=== PATIENT | female | born 1945 | race Caucasian/White ===

== ENCOUNTER 2016-08-19 11:03 | Inpatient (IN) | payer MEDICARE ==
[2016-08-19] VITALS (14 sets, daily range): BP systolic 100–202; BP diastolic 51–123; PULSE 64–196; RESP 14–24; TEMP 97.7–98; O2SAT 90–97
[~2016-08-19] VITALS: Ht 162.6 cm; Wt 66.1 kg
[2016-08-19] MEDS ORDERED: METO25TA3 PO (11:17)
--- NOTE | 2016-08-19 11:22 | PD ---
HPI Chief Complaint: Cold / Flu Symptoms Time Seen by Provider: 11:22 Travel History International Travel<30 days: No Contact w/Intl Traveler<30days: No Traveled to known affect area: No History of Present Illness HPI 70-year-old female with history of asthma and a "thick heart" presents to emergency department for evaluation of wheezing, chest congestion, and cough worsening over the last 4 days. Cough is productive of a thick yellow sputum. Patient is from [place] and here for by week. She does have seasonal asthma exacerbated by pollen and has not been taking her medication down here. Denies any fever or chills. No chest pain. No nausea, vomiting, diarrhea. Patient states at times she does still short of breath. As no other symptoms to report. PFSH Past Medical History Asthma: Yes (SEASONAL) Cardiovascular Problems: Yes (THICKENED "HEART WALL") Past Surgical History Genitourinary Surgery: Yes (BLADDER LIFT) Hysterectomy: Yes Social History Alcohol Use: No Tobacco Use: No Substance Use: No Allergies-Medications (Allergen,Severity, Reaction): Coded Allergies: Common Ragweed (Verified Allergy, Severe, 08/19/16) Reported Meds & Prescriptions Reported Meds & Active Scripts Active Reported Vesicare (Solifenacin) 5 Mg Tab Unknown Dose PO DAILY Vitamin E (Vitamin E (Topical)) 100 Unit/Gm Cre 400 Units PO DAILY Rhinocort Allergy Nasal [place] (Budesonide Nasal [place]) 32 Mcg/Act Susp 1 [place] EACH NARE DAILY Patanol Opth Drops (Olopatadine HCl) 0.1 % Drops 1 Drop EACH EYE BID Cevimeline (Cevimeline HCl) 30 Mg Cap 30 Mg PO TID [Femtrace] 1.8 Mg PO DAILY Ken-Citrate (Calcium Citrate) 150 Mg Cap 150 Mg PO DAILY Advair Diskus Inh (Fluticasone-Salmeterol Inh) 250-50 Mcg/Blist Aer 1 Puff INH BID Rinse mouth after use. Aciphex (Rabeprazole Sodium) 20 Mg Tab 20 Mg PO DAILY Metoprolol Tartrate 25 Mg Tab 25 Mg PO BID Review of Systems Except as stated in HPI: all other systems reviewed are Neg Physical Exam Narrative GENERAL: Well-nourished female patient, sitting up in bed, in no acute distress SKIN: Warm and dry. HEAD: Atraumatic. Normocephalic. EYES: Pupils equal and round. No scleral icterus. No injection or drainage. ENT: No nasal bleeding or discharge. Mucous membranes pink and moist. NECK: Trachea midline. No JVD. CARDIOVASCULAR: Elevated rate and rhythm.2/6 systolic murmur appreciated. RESPIRATORY: No accessory muscle use. Coarse, Inspiratory and expiratory wheeze , diminished bilateral lower lobes. Rub RUL. GASTROINTESTINAL: Abdomen soft, non-tender, nondistended. Hepatic and splenic margins not palpable. MUSCULOSKELETAL: No obvious deformities. No clubbing. No cyanosis. No edema. NEUROLOGICAL: Awake and alert. No obvious cranial nerve deficits. Motor grossly within normal limits. Normal speech. PSYCHIATRIC: Appropriate mood and affect; insight and judgment normal. Data Data Last Documented VS Vital Signs Date Time Temp Pulse Resp B/P Pulse Ox O2 Delivery O2 Flow Rate FiO2 08/19/16 15:04 92 18 119/68 90 Nasal Cannula 3 08/19/16 11:06 97.7 Orders Complete Blood Count With Diff (08/19/16 11:22) Basic Metabolic Panel (Bmp) (08/19/16 11:22) Influenzae A/B Antigen (08/19/16 11:22) Iv Access Insert/Monitor (08/19/16 11:22) Electrocardiogram (08/19/16 11:22) Ecg Monitoring (08/19/16 11:22) Oximetry (08/19/16 11:22) Oxygen Administration (08/19/16 11:22) Chest, Single Ap (08/19/16 11:22) Sodium Chloride 0.9% Flush (Ns Flush) (08/19/16 11:30) Methylprednisolone So Succ Inj (Solumedr (08/19/16 11:30) Albuterol-Ipratropium Neb (Duoneb Neb) (08/19/16 11:30) Metoprolol Tartrate (Lopressor) (08/19/16 13:00) Electrocardiogram (08/19/16 ) Ckmb (Isoenzyme) Profile (08/19/16 13:29) Magnesium (Mg) (08/19/16 13:29) Prothrombin Time / Inr (Pt) (08/19/16 13:29) Act Partial Throm Time (Ptt) (08/19/16 13:29) Troponin I (08/19/16 13:29) Adenosine Inj (Adenocard Inj) (08/19/16 13:30) Diltiazem Inj (Cardizem Inj) (08/19/16 13:36) Diltiazem Inj (Cardizem Inj) (08/19/16 13:45) Vital Signs (Adult) Q15MX4,Q4H (08/19/16 13:55) Tying Machine Operator / Telemetry DELIA.Q8H (08/19/16 13:55) Cardiac Rhythm DELIA.Q8H (08/19/16 13:55) ^ Notify Dr: Other (08/19/16 13:55) Diltiazem Inj (Cardizem Inj) (08/19/16 14:00) Adenosine Inj (Adenocard Inj) (08/19/16 14:00) Adenosine Inj (Adenocard Inj) (08/19/16 14:00) Ceftriaxone Inj (Rocephin Inj) (08/19/16 14:15) Digoxin Inj (Lanoxin Inj) (08/19/16 14:15) Azithromycin Inj (Zithromax Inj) (08/19/16 14:15) CKMB (08/19/16 11:20) CKMB% (08/19/16 11:20) Electrocardiogram (08/19/16 ) Ct Pulmonary Angiogram (08/19/16 ) Admit Order (Ed Use Only) (08/19/16 16:00) Labs Laboratory Tests Test 08/19/16 08/19/16 11:20 14:06 White Blood Count 12.2 TH/MM3 Red Blood Count 3.70 MIL/MM3 Hemoglobin 11.4 GM/DL Hematocrit 33.4 % Mean Corpuscular Volume 90.3 FL Mean Corpuscular Hemoglobin 30.9 PG Mean Corpuscular Hemoglobin 34.2 % Concent Red Cell Distribution Width 13.2 % Platelet Count 115 TH/MM3 Mean Platelet Volume 10.7 FL Neutrophils (%) (Auto) 87.5 % Lymphocytes (%) (Auto) 4.2 % Monocytes (%) (Auto) 8.1 % Eosinophils (%) (Auto) 0.0 % Basophils (%) (Auto) 0.2 % Neutrophils # (Auto) 10.7 TH/MM3 Lymphocytes # (Auto) 0.5 TH/MM3 Monocytes # (Auto) 1.0 TH/MM3 Eosinophils # (Auto) 0.0 TH/MM3 Basophils # (Auto) 0.0 TH/MM3 CBC Comment DIFF FINAL Differential Comment Sodium Level 128 MEQ/L Potassium Level 3.9 MEQ/L Chloride Level 92 MEQ/L Carbon Dioxide Level 27.2 MEQ/L Anion Gap 9 MEQ/L Blood Urea Nitrogen 15 MG/DL Creatinine 0.91 MG/DL Estimat Glomerular Filtration 61 ML/MIN Rate Random Glucose 104 MG/DL Calcium Level 7.9 MG/DL Magnesium Level 1.7 MG/DL Total Creatine Kinase 124 U/L Creatine Kinase MB 1.2 NG/ML Troponin I 0.03 NG/ML Prothrombin Time 11.8 SEC Prothromb Time International 1.1 RATIO Ratio Activated Partial 36.6 SEC Thromboplast Time MDM Medical Decision Making Medical Screen Exam Complete: Yes Emergency Medical Condition: Yes Medical Record Reviewed: Yes Differential Diagnosis Pneumonia versus influenza versus asthma exacerbation versus bronchitis Narrative Course 70-year-old female presents to emergency department for evaluation of cough and chest congestion. Patient does have coarse breath sounds with inspiratory next 3 weeks. She is given Solu-Medrol and DuoNeb treatments. CBC is with mild leukocytosis of 12.2. with a neutrophil count of 10.7. BMP has a hyponatremia 128, hypocalcemia 7.9. Chest x-ray is with bibasilar infiltrates and possible congestion. Upon reassessment, patient states that she feels like she might be working harder to breathe. Her heart rate is increased to 130 bpm. Patient did not take her metoprolol this morning. She is given the emergency emergency department. Patient's heart rate has not decreased. Seems to be fluctuating between 160bpm and [address] my attending physician Dr. Haddad is at the bedside. Patient was given adenosine 6 mg IV. Heart rate briefly slows but increases again almost immediately. 12 mg IV adenosine was given. Repeat EKG shows the patient is in A. fib. Vital signs remained stable except for heart rate. Patient is given Cardizem bolus. Upon reassessment, heart rate remains elevated and patient remains in A. fib. She is started on Cardizem drip. I discussed the findings with my attending physician. Patient has been given IV Rocephin and azithromycin as well for this pneumonia. I've discussed the patient with my attending physician Dr. Haddad. Patient will be admitted to the [facility]. Patient and her are updated on this plan. Diagnosis Primary Impression: Community acquired pneumonia Additional Impressions: Hyponatremia New onset a-fib Referrals: Primary Care Physician Patient Instructions: Community Acquired Pneumonia (ED), General Instructions, Hyponatremia (ED) Additional Instructions: Continue your medications as already prescribed Repeat basic metabolic panel with your primary care provider in a week Follow-up with a primary care provider Return immediately with any acute worsening of symptoms Med/Other Pt SpecificInfo: Prescription(s) given Disposition: 01 DISCHARGE HOME Condition: Stable Lianet Beverly Aug 19, 2016 11:22
[2016-08-19] MEDS ORDERED: VITA60003 PO (11:23)
[2016-08-19] MEDS ORDERED: CEVI1CAP PO (11:23)
[2016-08-19] MEDS ORDERED: CAL-150C PO (11:23)
[2016-08-19] MEDS ORDERED: BUDE1SUS9 EACH NARE (11:23)
[2016-08-19] MEDS ORDERED: ADVA250A INH (11:23)
[2016-08-19] MEDS ORDERED: FEMTRACE PO (11:23)
[2016-08-19] MEDS ORDERED: ACIP20TA6 PO (11:23)
[2016-08-19] MEDS ORDERED: VESI5TAB PO (11:23)
[2016-08-19] MEDS ORDERED: OLOP.1%O EACH EYE (11:23)
[2016-08-19] MEDS ORDERED: methylPREDNISolone SOD SUCC 125 MG/2 ML VIAL IVP ONE (11:30)
[2016-08-19] MEDS ORDERED: SODIUM CHLORIDE 0.9% FLUSH 5 ML FLUSH IVF PRN (11:30)
[2016-08-19 11:59] LABS: AUTOMATED NEUTROPHIL # 10.7 TH/MM3 (1.8-7.7); BASOPHIL % 0.2 % (0.0-2.0); HEMATOCRIT 33.4 % (35.0-46.0); HEMO FLAGS DIFF FINAL; LYMPH % 4.2 % (9.0-44.0); LYMPHOCYTE # 0.5 TH/MM3 (1.0-4.8); MEAN CELL VOLUME 90.3 FL (80.0-100.0); MEAN CORPUSCULAR HEMOGLOBIN 30.9 PG (27.0-34.0); MEAN CORPUSCULAR HGB CONC 34.2 % (32.0-36.0); MONO % 8.1 % (0.0-8.0); NEUT % 87.5 % (16.0-70.0); PLATELET COUNT 115 TH/MM3 (150-450); RED CELL DISTRIBUTION WIDTH 13.2 % (11.6-17.2); WHITE BLOOD COUNT 12.2 TH/MM3 (4.0-11.0)
[2016-08-19] MEDS: RESP: ALBUTEROL 2.5 MG/IPRATROPIUM 0.5 MG NEB (SCH) INH ×2 (12:07→12:08)
--- NOTE | 2016-08-19 12:09 | RADRPT ---
EXAM DATE/TIME: 08/19/2016 11:36 [facility] COMPARISON: No previous studies available for comparison. INDICATIONS : Chest Pain and Pressure MEDICAL HISTORY : None. SURGICAL HISTORY : None. ENCOUNTER: Initial ACUITY: 1 day PAIN SCORE: 4/10 LOCATION: Bilateral chest FINDINGS: A single view of the chest demonstrates prominence of lung markings suggestive of pulmonary venous co ngestion. There some mild infiltrates in both lung bases. The heart size is within normal limits. The re are no pleural effusions. The bony structures are grossly intact.. CONCLUSION: Pulmonary venous congestion with some mild bibasilar infiltrates. Kaleb Herrera MD on August 19, 2016 at 12:07 Board Certified Radiologist. This report was verified electronically.
[2016-08-19 12:21] LABS: BICARBONATE 27.2 MEQ/L (21.0-32.0); POTASSIUM 3.9 MEQ/L (3.5-5.1)
[2016-08-19] MEDS ORDERED: PRED50 PO (12:31)
[2016-08-19] MEDS ORDERED: ZITHTAB PO (12:31)
[2016-08-19] MEDS ORDERED: ALBUAER3 INH (12:31)
[2016-08-19] MEDS ORDERED: METOPROLOL TARTRATE 25 MG TAB PO ONE (13:00)
[2016-08-19] MEDS ORDERED: ADENOSINE IV SOLN 3 MG/ML 2 ML VIAL ONE (13:30)
[2016-08-19] MEDS ORDERED: DILTIAZEM HCL 25 MG/5 ML VIAL ONE (13:36)
[2016-08-19] MEDS ORDERED: DILTIAZEM HCL 25 MG/5 ML VIAL IV PUSH ONE (13:45)
--- NOTE | 2016-08-19 13:51 | EKG ---
Date Performed: 08/19/2016 Time Performed: 11:50:18 PTAGE: 70 years EKG: Sinus rhythm POSSIBLE LEFT ATRIAL ENLARGEMENT POSSIBLE RIGHT VENTRICULAR CONDUCTION DELAY MINIMAL ST DEPRESSION B ORDERLINE ECG NO PREVIOUS TRACING DOCTOR: Landry Randle Interpretating Date/Time 08/19/2016 13:50:57
[2016-08-19] MEDS ORDERED: ADENOSINE IV SOLN 3 MG/ML 2 ML VIAL IV PUSH ONE ×2 (14:00)
[2016-08-19] MEDS ORDERED: DIGOXIN 0.5 MG/2 ML VIAL IV PUSH ONE (14:15)
[2016-08-19] MEDS ORDERED: cefTRIAXone INJ 1,000 MG in SODIUM CHLORIDE 0.9% INJ 100 ML IV ONE (14:15)
[2016-08-19] MEDS ORDERED: AZITHROMYCIN INJ 500 MG in SODIUM CHLOR 0.9% 250 ML INJ 250 ML IV ONE (14:15)
[2016-08-19 14:18] LABS: APTT (PATIENT) 36.6 SEC (24.3-30.1); INTERNATIONAL NORMALIZED RATIO 1.1 RATIO; PROTHROMBIN TIME - PATIENT 11.8 SEC (9.8-11.6)
[2016-08-19] MEDS: DILTIAZEM INJ 125 MG in SODIUM CHLORIDE 0.9% INJ 100 ML IV SCH ×2 (14:18→15:03)
[2016-08-19 14:30] LABS: CREATINE KINASE 124 U/L (26-192); MAGNESIUM 1.7 MG/DL (1.5-2.5)
[2016-08-19 14:42] LABS: CKMB 1.2 NG/ML (0.5-3.6)
--- NOTE | 2016-08-19 16:25 | RADRPT ---
EXAM DATE/TIME: 08/19/2016 16:05 [facility] COMPARISON: CHEST SINGLE AP, August 19, 2016, 11:36. INDICATIONS : Chest pain and pressure. Evaluate for emboli. IV CONTRAST: 87 cc Omnipaque 350 (iohexol) IV RADIATION DOSE: 23.23 CTDIvol (mGy) MEDICAL HISTORY : Cardiovascular disease. SURGICAL HISTORY : None. ENCOUNTER: Initial ACUITY: 1 day PAIN SCALE: 0/10 LOCATION: Bilateral chest TECHNIQUE: Volumetric scanning of the chest was performed using a pulmonary embolism protocol MIP images were re constructed. Using automated exposure control and adjustment of the mA and/or kV according to patien t size, radiation dose was kept as low as reasonably achievable to obtain optimal diagnostic quality images. FINDINGS: PULMONARY ARTERIES: No filling defects are seen in the pulmonary arteries through the segmental level. LUNGS: Groundglass infiltrates are noted in both upper lobes right greater than left. There is streaky infil trate in both lower lobes with mild consolidation in the posterior lung bases. PLEURAE: There are small bilateral pleural effusions. MEDIASTINUM: There is mediastinal and bilateral hilar adenopathy. There is subcarinal adenopathy as well. There is no pericardial effusion. The heart size is mildly prominent. MUSCULOSKELETAL: Within normal limits for patient age. MISCELLANEOUS: The visualized upper abdominal organs demonstrate no acute abnormality. CONCLUSION: 1. No evidence of pulmonary embolism. 2. Groundglass opacities in the upper lobes right greater than left as well as infiltrate mild consol idation in the posterior lung bases. Findings may be infectious. 3. Small bilateral pleural effusions. 4. Mediastinal and hilar adenopathy. Clint Casey MD on August 19, 2016 at 16:20 Board Certified Radiologist. This report was verified electronically.
[2016-08-19] MEDS ORDERED: IOHEXOL 350 MG/ML 10 ML VIAL (for RAD DIAG) IV ONE (17:00)
[2016-08-19] MEDS ORDERED: SODIUM CHLORIDE 0.9% FLUSH 5 ML FLUSH FLUSH PRN (17:30)
[2016-08-19] MEDS ORDERED: ZOLPIDEM TARTRATE 5 MG TAB PO PRN (17:30)
[2016-08-19] MEDS ORDERED: ACETAMINOPHEN 325 MG TAB PO PRN ×2 (17:30)
[2016-08-19] MEDS ORDERED: ONDANSETRON HCL 4 MG/2 ML VIAL IVP PRN (17:30)
[2016-08-19] MEDS ORDERED: NALOXONE HCL 0.4 MG/ML AMP IV PRN (17:30)
[2016-08-19] MEDS ORDERED: SENNOSIDES 8.6 MG TAB PO PRN (17:30)
[2016-08-19] MEDS ORDERED: ENOXAPARIN SODIUM 40 MG/0.4 ML SYRINGE SQ SCH (17:30)
[2016-08-19] MEDS ORDERED: RESP: ALBUTEROL 2.5 MG/IPRATROPIUM 0.5 MG NEB (PRN) NEB (17:30)
--- NOTE | 2016-08-19 17:32 | HHI.HP ---
HPI [facility] Primary [facility] Physician Non-Staff Admission Diagnosis New onset afib; Pneumonia Diagnoses: Chief Complaint: Shortness of breath Travel History International Travel<30 Days: No Contact w/Intl Traveler <30 Da: No Traveled to Known Affected Are: No History of Present Illness The patient is a 70-year-old female who is presenting to the hospital with shortness of breath. She said that she started to develop chest discomfort, shortness of breath and a cough on Sunday. She has been producing mucus that she describes as cowart in color. She says she sometimes develops chest pain with her coughing episodes. She denies any palpitations. She has been having a lot of shortness of breath. She has not been eating well over the past few days. She denies any fevers. She did get a bloody nose yesterday that seemed to resolve on its own relatively quickly. She was planning on going home tomorrow but she realizes she would not be able to make the journey back so she decided to come to the hospital. The patient is visiting from [place] for bike week and rotor motorcycle here. She was planning on riding her motorcycle back home tomorrow but she knew that in her current condition she could not make that trip. In the emergency department she was found to have pneumonia and was about to be discharged on antibiotics when she went into a tachycardic rhythm. She received adenosine which revealed atrial fibrillation and she was started on a Cardizem drip. The patient denies any diarrhea or dysuria. She has not noticed any fevers. Review of Systems Except as stated in HPI: all other systems reviewed are Neg Past Family Social History Past Medical History The patient says she has a thickened heart which is monitored every 6 months with ultrasound Past Surgical History Hysterectomy Bladder lift Allergies: Coded Allergies: Common Ragweed (Verified Allergy, Severe, 08/19/16) Active Ordered Medications Current Medications Medications (Trade) Dose Ordered Sig/Vinicio Route Start Time Stop Time Status Last Admin IV Flush 2 ml 2 ml UNSCH PRN IVF 08/19/16 11:30 (Cardizem Inj/NS Inj) 125 ml @ 0 mls/hr TITRATE IV 08/19/16 14:00 08/19/16 15:03 (Patanol 0.1% Opth) 1 drop BID EACH EYE 08/19/16 21:00 UNV (Protonix) 20 mg DAILY PO 08/20/16 09:00 UNV Non-Formulary Medication 150 mg DAILY PO 08/20/16 09:00 UNV Non-Formulary Medication 1 puff BID INH 08/19/16 21:00 UNV Non-Formulary Medication 400 units DAILY PO 08/20/16 09:00 UNV Metoprolol Tartrate 50 mg 50 mg Q12HR PO 08/19/16 21:00 UNV Ceftriaxone Sodium 1000 mg/ Sodium Chloride 100 ml @ 200 mls/hr Q24H IV 08/20/16 14:00 UNV Azithromycin 500 mg/Sodium Chloride 250 ml @ 250 mls/hr Q24H IV 08/20/16 14:00 UNV (NS 1000 ml Inj) 1,000 ml @ 100 mls/hr Q10H IV 08/19/16 17:21 08/20/16 13:20 UNV (NS Flush) 2 ml UNSCH PRN FLUSH 08/19/16 17:30 UNV (NS Flush) 2 ml BID FLUSH 08/19/16 21:00 UNV (Tylenol) 650 mg Q4H PRN PO 08/19/16 17:30 UNV (Zofran Inj) 4 mg Q6H PRN IVP 08/19/16 17:30 UNV (Colace) 100 mg Q12H PO 08/19/16 17:30 UNV (Senokot) 17.2 mg Q12H PRN PO 08/19/16 17:30 UNV (Ambien) 5 mg HS PRN PO 08/19/16 17:30 UNV (Lovenox Inj) 40 mg Q24H SQ 08/19/16 17:30 UNV (Tylenol) 650 mg Q6H PRN PO 08/19/16 17:30 UNV (Roxicodone) 10 mg Q4H PRN PO 08/19/16 17:30 UNV (Roxicodone) 5 mg Q4H PRN PO 08/19/16 17:30 UNV (Narcan Inj) 0.4 mg UNSCH PRN IV 08/19/16 17:30 UNV Family History The patient denies pertinent family history. Social History The patient does not smoke, drink alcohol or use illicit drugs. Physical Exam Vital Signs Vital Signs Date Time Temp Pulse Resp B/P Pulse Ox O2 Delivery O2 Flow Rate FiO2 08/19/16 15:04 92 18 119/68 90 Nasal Cannula 3 08/19/16 14:09 162 18 100/73 96 Nasal Cannula 2 08/19/16 13:40 150 18 202/123 96 Nasal Cannula 2 08/19/16 13:30 196 18 100/51 93 Nasal Cannula 2 08/19/16 12:01 92 18 106/60 97 Room Air 08/19/16 12:00 97 Room Air 08/19/16 11:06 97.7 101 14 123/57 95 Physical Exam GENERAL: This is a well-nourished, well-developed patient, in no apparent distress. SKIN: No rashes, ecchymoses or lesions. Cool and dry. HEAD: Atraumatic. Normocephalic. No temporal or scalp tenderness. EYES: Pupils equal round and reactive. Extraocular motions intact. No scleral icterus. No injection or drainage. ENT: Nose without bleeding, purulent drainage or septal hematoma. Throat without erythema, tonsillar hypertrophy or exudate. Uvula midline. Airway patent. NECK: Trachea midline. No JVD or lymphadenopathy. Supple, nontender, no meningeal signs. CARDIOVASCULAR: Tachycardic without murmurs, gallops, or rubs. RESPIRATORY: Diffuse wheezing and rhonchi throughout lung rosario. GASTROINTESTINAL: Abdomen soft, non-tender, nondistended. No hepato-splenomegaly , or palpable masses. No guarding. MUSCULOSKELETAL: Trace bilateral lower extremity edema. NEUROLOGICAL: Awake and alert. Cranial nerves II through XII intact. Motor and sensory grossly within normal limits. Five out of 5 muscle strength in all muscle groups. Normal speech. PSYCH: Mood and affect appropriate. Laboratory Laboratory Tests Test 08/19/16 08/19/16 11:20 14:06 White Blood Count 12.2 Red Blood Count 3.70 Hemoglobin 11.4 Hematocrit 33.4 Mean Corpuscular Volume 90.3 Mean Corpuscular Hemoglobin 30.9 Mean Corpuscular Hemoglobin 34.2 Concent Red Cell Distribution Width 13.2 Platelet Count 115 Mean Platelet Volume 10.7 Neutrophils (%) (Auto) 87.5 Lymphocytes (%) (Auto) 4.2 Monocytes (%) (Auto) 8.1 Eosinophils (%) (Auto) 0.0 Basophils (%) (Auto) 0.2 Neutrophils # (Auto) 10.7 Lymphocytes # (Auto) 0.5 Monocytes # (Auto) 1.0 Eosinophils # (Auto) 0.0 Basophils # (Auto) 0.0 CBC Comment DIFF FINAL Differential Comment Sodium Level 128 Potassium Level 3.9 Chloride Level 92 Carbon Dioxide Level 27.2 Anion Gap 9 Blood Urea Nitrogen 15 Creatinine 0.91 Estimat Glomerular Filtration 61 Rate Random Glucose 104 Calcium Level 7.9 Magnesium Level 1.7 Total Creatine Kinase 124 Creatine Kinase MB 1.2 Troponin I 0.03 Prothrombin Time 11.8 Prothromb Time International 1.1 Ratio Activated Partial 36.6 Thromboplast Time Date/Time Procedure Status Source Growth 08/19/16 11:20 Influenza Types A,B Antigen (MICHELLE) - Final Complete Nasal Washing Result Diagram: 08/19/16 1120 08/19/16 1120 Imaging Last Impressions Chest X-Ray 08/19/16 1122 Signed Impressions: Service Date/Time: Friday, August 19, 2016 11:36 - CONCLUSION: Pulmonary venous congestion with some mild bibasilar infiltrates. Kaleb Herrera MD CT Angiography 08/19/16 0000 Signed Impressions: Service Date/Time: Friday, August 19, 2016 16:05 - CONCLUSION: 1. No evidence of pulmonary embolism. 2. Groundglass opacities in the upper lobes right greater than left as well as infiltrate mild consolidation in the posterior lung bases. Findings may be infectious. 3. Small bilateral pleural effusions. 4. Mediastinal and hilar adenopathy. Clint Casey MD Assessment and Plan Assessment and Plan Atrial fibrillation/ Thickened heart New onset. The pt had tachycardia and required adenosine prior to identification of rhythm being atrial fibrillation. She was started on a Cardizem drip. The pt's CHADs 2 score is 0. She is on Lopressor for a thickened heart for which she gets echocardiograms every 6 months. - continue Cardizem gtt. - increase Lopressor to 50 mg BID and monitor on telemetry. - start full-strength aspirin. - check a TSH and an echocardiogram. - treat underlying pneumonia. CAP/ asthma The pt has dyspnea and symptoms of congestion. She has a history of asthma. She has leukocytosis. CT showed: No evidence of pulmonary embolism; Groundglass opacities in the upper lobes, right greater than left as well as infiltrate, mild consolidation in the posterior lung bases; Small bilateral pleural effusions; Mediastinal and hilar adenopathy. - continue ceftriaxone and azithromycin. - sputum culture and gram stain. - Duonebs standing and as needed. - Solumedrol 40 mg IV q 8 hours. - incentive spirometry. Hyponatremia Likely s/t decreased PO intake, which the pt endorses. - IVFs. - encourage PO intake. - monitor BMP. Thrombocytopenia Unsure of baseline. May be decreased secondary to infection. - treat pneumonia as above. - Follow CBC. PPx: Lovenox. Code Status Full. Discussed Condition With Lianet Beverly, pt, pt's family. Physician Certification 2 Midnight Certification Type: Admission for Inpatient Services Order for Inpatient Services The services are ordered in accordance with Medicare regulations or non- Medicare payer requirements, as applicable. In the case of services not specified as inpatient-only, they are appropriately provided as inpatient services in accordance with the 2-midnight benchmark. Estimated LOS (days): 2 days is the estimated time the patient will need to remain in the hospital, assuming treatment plan goals are met and no additional complications. Post-Hospital Plan: Home Clint Bassett DO Aug 19, 2016 17:32
--- NOTE | 2016-08-19 18:06 | EKG ---
Date Performed: 08/19/2016 Time Performed: 13:36:07 PTAGE: 70 years EKG: Marked baseline artifact present. Probable atrial fibrillation with ST-T wave changes. Th is is a poor quality electrocardiogram but in comparison it does appear the rate has slowed. DOCTOR: Landry Randle Interpretating Date/Time 08/19/2016 18:04:37
--- NOTE | 2016-08-19 18:06 | EKG ---
Date Performed: 08/19/2016 Time Performed: 13:33:12 PTAGE: 70 years EKG: ATRIAL FIBRILLATION WITH RAPID VENTRICULAR RESPONSE WITH ABERRANT CONDUCTION OR VENTRICULAR PREMATURE COMPLEXES MARKED ST DEPRESSION, CONSIDER SUBENDOCARDIAL INJURY ABNORMAL ECG INTERPRETATIO N BASED ON A DEFAULT AGE OF 40 YEARS COMPARED TO PRIOR ELECTROCARDIOGRAM, Rapid atrial fibrillation a nd ST segment changes are present. PREVIOUS TRACING : 08/19/2016 11.50 DOCTOR: Landry Randle Interpretating Date/Time 08/19/2016 18:04:59
[2016-08-19] MEDS: DOCUSATE SODIUM 100 MG CAP PO SCH (18:27)
[2016-08-19] MEDS: SODIUM CHLOR 0.9% 1000 ML INJ 1,000 ML IV SCH (18:28)
[2016-08-19] MEDS: methylPREDNISolone SOD SUCC 40 MG/1 ML VIAL IV PUSH SCH ×2 (18:51→23:04)
[2016-08-19] MEDS ORDERED: HEPARIN-D5W INJ 250 ML IV SCH (20:00)
[2016-08-19 20:39] LABS: HEMATOCRIT 30.9 % (35.0-46.0); MEAN CELL VOLUME 90.8 FL (80.0-100.0); MEAN CORPUSCULAR HEMOGLOBIN 30.6 PG (27.0-34.0); MEAN CORPUSCULAR HGB CONC 33.7 % (32.0-36.0); PLATELET COUNT 110 TH/MM3 (150-450); RED CELL DISTRIBUTION WIDTH 13.3 % (11.6-17.2); REVIEW FLAG FINAL; WHITE BLOOD COUNT 11.8 TH/MM3 (4.0-11.0)
[2016-08-19 20:49] LABS: APTT (PATIENT) 42.6 SEC (24.3-30.1); INTERNATIONAL NORMALIZED RATIO 1.1 RATIO
[2016-08-19] MEDS: SODIUM CHLORIDE 0.9% FLUSH 5 ML FLUSH FLUSH SCH (21:00)
[2016-08-19] MEDS: METOPROLOL TARTRATE 50 MG TAB PO SCH (21:56)
[2016-08-19] MEDS: RESP: ALBUTEROL 2.5 MG/IPRATROPIUM 0.5 MG NEB (SCH) NEB (22:29)
[2016-08-19] MEDS: BUDESONIDE-FORMOTEROL 160/4.5 MCG INHALER INH SCH (23:04)
[2016-08-20] VITALS (25 sets, daily range): BP systolic 112–155; BP diastolic 59–66; PULSE 55–82; RESP 16–20; TEMP 98–98.8; O2SAT 95–98
[2016-08-20 04:48] LABS: AUTOMATED NEUTROPHIL # 9.2 TH/MM3 (1.8-7.7); BASOPHIL % 0.1 % (0.0-2.0); HEMATOCRIT 29.2 % (35.0-46.0); HEMO FLAGS DIFF FINAL; LYMPH % 5.2 % (9.0-44.0); LYMPHOCYTE # 0.5 TH/MM3 (1.0-4.8); MEAN CELL VOLUME 91.5 FL (80.0-100.0); MEAN CORPUSCULAR HEMOGLOBIN 30.7 PG (27.0-34.0); MEAN CORPUSCULAR HGB CONC 33.6 % (32.0-36.0); NEUT % 90.7 % (16.0-70.0); PLATELET COUNT 102 TH/MM3 (150-450); RED BLOOD COUNT 3.19 MIL/MM3 (4.00-5.30); RED CELL DISTRIBUTION WIDTH 13.5 % (11.6-17.2); WHITE BLOOD COUNT 10.1 TH/MM3 (4.0-11.0)
[2016-08-20 05:23] LABS: APTT (PATIENT) 64.1 SEC (24.3-30.1)
[2016-08-20] MEDS: DOCUSATE SODIUM 100 MG CAP PO SCH ×3 (05:30→17:30)
[2016-08-20 05:39] LABS: BICARBONATE 22.4 MEQ/L (21.0-32.0); POTASSIUM 4.1 MEQ/L (3.5-5.1)
[2016-08-20 06:03] LABS: CALCIUM-PROTEIN CORRECTED 7.6 MG/DL (8.5-10.1)
[2016-08-20] MEDS: methylPREDNISolone SOD SUCC 40 MG/1 ML VIAL IV PUSH SCH (06:43)
[2016-08-20] MEDS: RESP: ALBUTEROL 2.5 MG/IPRATROPIUM 0.5 MG NEB (SCH) NEB (07:30)
[2016-08-20] MEDS ORDERED: VITAMIN E 400 UNIT PO SCH (09:00)
[2016-08-20] MEDS: SODIUM CHLORIDE 0.9% FLUSH 5 ML FLUSH FLUSH SCH ×2 (09:00→21:05)
[2016-08-20] MEDS ORDERED: ASPIRIN EC 325 MG TABEC PO SCH (09:00)
[2016-08-20] MEDS ORDERED: CALCIUM CITRATE PO SCH (09:00)
--- NOTE | 2016-08-20 09:39 | EC ---
Study Study Date:08/20/2016 STUDY CONCLUSIONS SUMMARY - Left ventricle: The cavity size was normal. Wall thickness was increased increased in a pattern of mild to moderate LVH. There was hypertrophy of the septum. Systolic function was vigorous. The estimated ejection fraction was in the range of 65% to 70%. Wall motion was normal; there were no regional wall motion abnormalities. - Mitral valve: Mildly calcified annulus. Mildly thickened leaflets, . Prolapse, involving the anterior leaflet. There was systolic anterior motion. Severe regurgitation. - Pulmonary arteries: PA peak pressure: 45mm Hg (S). If LV function is below 40, please consider prescribing an ACEI or ARB or document rationale for non-use. PROCEDURE DATA STUDY STATUS: Elective. Procedure: Transthoracic echocardiography. Image quality was fair. Scanning was performed from the parasternal, apical, and subcostal acoustic windows. Study completion: The patient tolerated the procedure well. Transthoracic echocardiography. M-mode, complete 2D, complete spectral Doppler, and color Doppler. Height: Height: 64in. Weight: Weight: 131.7lb. Body mass index: BMI: 22.7kg/m^2. Body surface area: BSA: 1.64m^2. Patient status: Inpatient. CARDIAC ANATOMY LEFT VENTRICLE: The cavity size was normal. Wall thickness was increased increased in a pattern of mild to moderate LVH. There was hypertrophy of the septum. Systolic function was vigorous. The estimated ejection fraction was in the range of 65% to 70%. Wall motion was normal; there were no regional wall motion abnormalities. AORTIC VALVE: Mildly thickened leaflets. Doppler: Transvalvular velocity was within the normal range. There was no stenosis. No regurgitation. AORTA: Aortic root: The aortic root was normal in size. MITRAL VALVE: Severe LV outflow obstruction with peak 140 mmHg gradient. Mildly calcified annulus. Mildly thickened leaflets, . Prolapse, involving the anterior leaflet. There was systolic anterior motion. Doppler: Transvalvular velocity was within the normal range. There was no evidence for stenosis. Severe regurgitation. Peak gradient: 7mm Hg (D). LEFT ATRIUM: The atrium was normal in size. RIGHT VENTRICLE: The cavity size was normal. Wall thickness was normal. PULMONIC VALVE: Poorly visualized. Doppler: Transvalvular velocity was within the normal range. There was no evidence for stenosis. No regurgitation. TRICUSPID VALVE: Structurally normal valve. Doppler: Transvalvular velocity was within the normal range. Trace regurgitation. PULMONARY ARTERY: The main pulmonary artery was normal-sized. Systolic pressure was within the normal range. RIGHT ATRIUM: The atrium was normal in size. PERICARDIUM: There was no pericardial effusion. SYSTEMIC VEINS: Inferior vena cava: The vessel was normal in size. Patient weight: 131.7lb _Ejection fraction:_ 65-75% _Fractional shortening:_ 32% up to 5Kg 5-11.5Kg 11.6-22.9Kg 23-45Kg 45-57Kg Aortic Root 7-13 <17 13-22 17-27 17-27 LA diam 6-13 <23 24-38 33-47 37-40 RVID 10-17 7-15 7-15 7-18 8-17 LVIDd 12-22 <32 24-38 33-47 37-40 LVPW 2-4 3-6 5-7 6-8 7-8 IVS 2-4 3-6 5-7 6-8 7-8 BASIC MEASUREMENTS ADULT Normal Left ventricle LV internal dimension, ED, chordal level, 45.4 mm 43-52 PLAX LV internal dimension, ES, chordal level, *19.9 mm 23-38 PLAX Fractional shortening, chordal level, PLAX 56 % >29 LV posterior wall thickness, ED 8.54 mm IVS/LVPW ratio, ED *1.6 <1.3 Ventricular septum Septal thickness, ED 13.7 mm Aorta Root diameter, ED 27 mm Left atrium Anterior-posterior dimension 37 mm Anterior-posterior dimension index *2.26 cm/m^2 <2.2 DOPPLER MEASUREMENTS ADULT Normal Main pulmonary artery Pressure, S *45 mm Hg =30 Mitral valve Peak E-wave velocity 133 cm/s Peak A-wave velocity 48.7 cm/s Deceleration time 229 ms 150-230 Peak gradient, D 7 mm Hg Peak E/A ratio 2.7 Tricuspid valve Regurgitant peak velocity 307 cm/s Peak RV-RA gradient, S 38 mm Hg Maximal regurgitant velocity 307 cm/s Systemic veins Estimated CVP 10 mm Hg Right ventricle RV pressure, S *48 mm Hg <30 Pulmonic valve Peak velocity, S 84.2 cm/s LEGEND: Mean values are shown as u=mean value. Asterisk (*) fountain values outside specified normal range. Prepared and signed by Landry Randle [id number]
[2016-08-20] MEDS: PANTOPRAZOLE SOD 20 MG DELAYED RELEASE TAB PO SCH (09:51)
[2016-08-20] MEDS: METOPROLOL TARTRATE 50 MG TAB PO SCH ×2 (09:51→21:04)
[2016-08-20] MEDS: BUDESONIDE-FORMOTEROL 160/4.5 MCG INHALER INH SCH ×2 (09:52→21:04)
[2016-08-20] MEDS ORDERED: AMIODARONE INJ 450 MG in D5W (EXCEL BAG) 241 ML IV SCH (10:00)
[2016-08-20] MEDS ORDERED: AMIODARONE 150 MG/D5W 97 ML BOLUS 60 MINUTES IV ONE ×2 (10:00)
--- NOTE | 2016-08-20 10:31 | MB ---
cc: ANDREA SILVERIO ALAN S. M.D. DATE OF CONSULTATION: 08/20/2016 HISTORY OF PRESENT ILLNESS The patient is a 70-year-old white female I am seeing for rapid atrial fibrillation and elevated troponins. The patient is followed for hypertrophic cardiomyopathy outside of [place]. She is moderately active and has no cardiac symptoms otherwise. [place] came [place]. Approximately 3 days prior to admission she developed cough with grayish sputum but no fevers, chills, shortness of breath or other complaints. She was admitted yesterday after being up a lot of the night with shortness of breath and wheezing. The patient presented to the emergency room here. She was in sinus rhythm at the time with no definite electrocardiographic changes. Again, she denies any chest pain. Chest x-ray in the emergency room showed pulmonary venous congestion with some mild bibasilar infiltrates. CT angiogram showed possible infiltrates with small bilateral effusions, mediastinal and hilar adenopathy and no evidence for pulmonary embolism. While getting a breathing treatment the patient went into very rapid atrial fibrillation. This subsequently converted back to sinus rhythm. She is asymptomatic at this point in time. LABORATORY FINDINGS CBC initially with mildly elevated white count. She has become more anemic with hematocrit going from 33.4-29.2. Platelet count mildly depressed. She is on a heparin drip. Potassium 4.1, creatinine 0.72, magnesium 1.7. Troponins have elevated from 0.03 to 1.76 and 2.54. MEDICATIONS PRIOR TO ADMISSION Reviewed. PAST MEDICAL HISTORY The patient denies high blood pressure, diabetes, hypertension or thyroid issues. She has had a hysterectomy and bladder suspension. SOCIAL HISTORY She is and does not smoke and rarely drinks. FAMILY HISTORY Unremarkable for heart disease. I have ordered some magnesium supplementation. ECHOCARDIOGRAM Echocardiogram showed hyperdynamic LV function with mild asymmetric septal hypertrophy but with severe outflow obstruction with peak 140 mm gradient along with anterior leaflet mitral valve prolapse and severe mitral regurgitation. PHYSICAL EXAMINATION GENERAL: On exam she is alert and oriented x3. HEENT: There are no xanthelasma and oropharyngeal mucosa normal. CHEST: Clear. JVD perhaps minimally elevated. CARDIAC: S1-S2, no gallops. There is a 3/6 harsh systolic ejection murmur at the left sternal border. ABDOMEN: Benign. EXTREMITIES: Show no cyanosis, clubbing or edema. PULSES: Carotids without bruits. Radials 1-2+. Femorals 1-2+ without bruits. Pedal is 1+. She is not ambulated. ASSESSMENT/PLAN Aline has had mild cough with sputum production since Sunday and may have a pneumonia or bronchitis. Her echocardiogram is consistent with hyperdynamic LV function with severe obstructive hypertrophic cardiomyopathy based on LV outflow obstruction and severe mitral regurgitation. She could have a mild component of CHF on top of this. She did go into rapid atrial fibrillation with bronchodilators. She has had anemia but is on heparin presently along with aspirin. Her troponin is elevated but I suspect most likely due to the rapid atrial fibrillation in the setting of the obstructive hypertrophic cardiomyopathy. At this point I would recommend the followin. Continue aspirin. I will decrease this to 162 mg daily. I will leave anticoagulation decision to the primary service but I am hesitant at this point in time given her worsening anemia and the fact that it was very transient, occurring in the setting of bronchodilators. 2. I will start her on intravenous amiodarone. Certainly maintenance of an atrial kick is imperative with her hypertrophic cardiomyopathy and we want to maintain her in sinus rhythm. 3. Avoid dehydration. 4. At the present time I would not pursue her elevated troponin further. She does need to follow up [place] with her local poultry killer and I do not want her riding a motorcycle or performing any heavy activities. Her disease is severe enough that it does appear she may require surgical procedure in the near future. All questions were answered. Landry Randle MD ASPrem/TLL /9:54 AM /10:14 AM
[2016-08-20] MEDS: OLOPATADINE HCL 0.1% OPHT SOLN 5 ML BTL EACH EYE SCH ×2 (10:58→21:00)
[2016-08-20] MEDS ORDERED: MAGNESIUM SULFATE 1 GM PREMIX 100 ML IV ONE (11:00)
--- NOTE | 2016-08-20 11:01 | EKG ---
Date Performed: 08/20/2016 Time Performed: 06:19:06 PTAGE: 70 years EKG: Sinus rhythm Lateral ST changes are nonspecific Borderline ECG No significant change from prior electrocardiogram . PREVIOUS TRACING : 08/20/2016 00.01 DOCTOR: Landry Randle Interpretating Date/Time 08/20/2016 11:00:31
--- NOTE | 2016-08-20 11:05 | EKG ---
Date Performed: 08/20/2016 Time Performed: 00:01:36 PTAGE: 70 years EKG: Sinus rhythm Normal ECG Compared to prior electrocardiogram,prior letter cardiogram has marked artifact and canno t be accurately compared. Prior EKG does suggest atrial fibrillation. PREVIOUS TRACING : 08/19/2016 13.36 DOCTOR: Landry Randle Interpretating Date/Time 08/20/2016 11:04:05
--- NOTE | 2016-08-20 11:12 | HHI.PR ---
Subjective Remarks The pt was having diarrhea but she said her stools were formed. She said her breathing was much better. She talked with the kidney trimmer earlier today. She has been ambulating. Family at the bedside. Discussed with cardiology. Objective Vitals Vital Signs Date Time Temp Pulse Resp B/P Pulse Ox O2 Delivery O2 Flow Rate FiO2 08/20/16 07:32 97 Nasal Cannula 2.00 08/20/16 07:30 98.5 68 16 112/66 95 08/20/16 07:00 66 08/20/16 04:00 98.0 71 20 112/62 95 08/20/16 02:00 60 08/20/16 01:00 60 08/20/16 00:06 98.0 68 18 155/63 95 08/20/16 00:00 62 08/19/16 23:00 64 08/19/16 22:29 96 Nasal Cannula 2.00 08/19/16 22:00 68 08/19/16 21:00 72 08/19/16 20:00 98.0 78 24 120/72 95 08/19/16 20:00 80 08/19/16 20:00 98.0 78 24 120/72 95 08/19/16 19:20 78 08/19/16 18:51 82 18 118/58 93 Nasal Cannula 3 08/19/16 17:30 90 18 113/68 94 Nasal Cannula 3 08/19/16 15:04 92 18 119/68 90 Nasal Cannula 3 08/19/16 14:09 162 18 100/73 96 Nasal Cannula 2 08/19/16 13:40 150 18 202/123 96 Nasal Cannula 2 08/19/16 13:30 196 18 100/51 93 Nasal Cannula 2 08/19/16 12:01 92 18 106/60 97 Room Air 08/19/16 12:00 97 Room Air 08/19/16 11:06 97.7 101 14 123/57 95 I/O 08/19/16 08/19/16 08/19/16 08/20/16 08/20/16 08/20/16 07:00 15:00 23:00 07:00 15:00 23:00 Intake Total 1530 ml Balance 1530 ml Intake Oral 240 ml IV Total 1290 ml # Voids 5 Result Diagram: 08/20/16 0420 08/20/16 0420 Imaging Last Impressions Chest X-Ray 08/19/16 1122 Signed Impressions: Service Date/Time: Friday, August 19, 2016 11:36 - CONCLUSION: Pulmonary venous congestion with some mild bibasilar infiltrates. Kaleb Herrera MD CT Angiography 08/19/16 0000 Signed Impressions: Service Date/Time: Friday, August 19, 2016 16:05 - CONCLUSION: 1. No evidence of pulmonary embolism. 2. Groundglass opacities in the upper lobes right greater than left as well as infiltrate mild consolidation in the posterior lung bases. Findings may be infectious. 3. Small bilateral pleural effusions. 4. Mediastinal and hilar adenopathy. Clint Casey MD Objective Remarks GENERAL: This is a well-nourished, well-developed patient, in no apparent distress. SKIN: No rashes, ecchymoses or lesions. Cool and dry. HEAD: Atraumatic. Normocephalic. No temporal or scalp tenderness. EYES: Pupils equal round and reactive. Extraocular motions intact. No scleral icterus. No injection or drainage. ENT: Nose without bleeding, purulent drainage or septal hematoma. Throat without erythema, tonsillar hypertrophy or exudate. Uvula midline. Airway patent. NECK: Trachea midline. No JVD or lymphadenopathy. Supple, nontender, no meningeal signs. CARDIOVASCULAR: Regular rate and rhythm. Grade 3 systolic murmur appreciated. RESPIRATORY: Bilateral crackles. Minimal wheezing. GASTROINTESTINAL: Abdomen soft, non-tender, nondistended. No hepato-splenomegaly , or palpable masses. No guarding. MUSCULOSKELETAL: Trace bilateral lower extremity edema. NEUROLOGICAL: Awake and alert. Cranial nerves II through XII intact. Motor and sensory grossly within normal limits. Five out of 5 muscle strength in all muscle groups. Normal speech. PSYCH: Mood and affect appropriate. Medications and IVs Current Medications Medications (Trade) Dose Ordered Sig/Vinicio Route Start Time Stop Time Status Last Admin IV Flush 2 ml 2 ml UNSCH PRN IVF 08/19/16 11:30 (Cardizem Inj/NS Inj) 125 ml @ 0 mls/hr TITRATE IV 08/19/16 14:00 08/19/16 15:03 (Patanol 0.1% Opth) 1 drop BID EACH EYE 08/19/16 21:00 (Protonix) 20 mg DAILY PO 08/20/16 09:00 08/20/16 09:51 (Symbicort 160-4.5 Inh) 1 puff BID INH 08/19/16 21:00 08/20/16 09:52 Metoprolol Tartrate 50 mg 50 mg Q12HR PO 08/19/16 21:00 08/20/16 09:51 Ceftriaxone Sodium 1000 mg/ Sodium Chloride 100 ml @ 200 mls/hr Q24H IV 08/20/16 14:00 Azithromycin 500 mg/Sodium Chloride 250 ml @ 250 mls/hr Q24H IV 08/20/16 14:00 (NS 1000 ml Inj) 1,000 ml @ 100 mls/hr Q10H IV 08/19/16 17:21 08/20/16 13:20 08/19/16 18:28 (NS Flush) 2 ml UNSCH PRN FLUSH 08/19/16 17:30 (NS Flush) 2 ml BID FLUSH 08/19/16 21:00 08/19/16 21:00 (Tylenol) 650 mg Q4H PRN PO 08/19/16 17:30 (Zofran Inj) 4 mg Q6H PRN IVP 08/19/16 17:30 (Colace) 100 mg Q12H PO 08/19/16 17:30 08/19/16 18:27 (Senokot) 17.2 mg Q12H PRN PO 08/19/16 17:30 (Ambien) 5 mg HS PRN PO 08/19/16 17:30 (Tylenol) 650 mg Q6H PRN PO 08/19/16 17:30 (Roxicodone) 10 mg Q4H PRN PO 08/19/16 17:30 (Roxicodone) 5 mg Q4H PRN PO 08/19/16 17:30 (Narcan Inj) 0.4 mg UNSCH PRN IV 08/19/16 17:30 Methylprednisolone Sodium Succinate 40 mg 40 mg Q8HR IV PUSH 08/19/16 17:30 08/20/16 06:43 Magnesium Sulfate/ Dextrose 100 ml @ 100 mls/hr ONCE ONCE IV 08/20/16 11:00 08/20/16 11:59 (Cordarone Inj/ D5W ([place]) Inj) 250 ml @ 0 mls/hr CONTINUOUS IV 08/20/16 10:00 Aspirin 162 mg 162 mg DAILY PO 08/21/16 09:00 (Calcium Gluconate Inj/NS Inj) 120 ml @ 120 mls/hr ONCE ONCE IV 08/20/16 11:00 08/20/16 11:59 UNV A/P Assessment and Plan Atrial fibrillation/ Hypertrophic cardiomyopathy/ NSTEMI New onset. The pt had tachycardia and required adenosine prior to identification of rhythm being atrial fibrillation. She was started on a Cardizem drip. The pt's CHADs 2 score is 0. She is on Lopressor for a thickened heart for which she gets echocardiograms every 6 months. Cardiology consult appreciated. Per cardiology echo revealed severe outflow obstruction with a gradient of 140 mm. Troponin elevated at 2.54, likely s/t A fib with HCM as well as PNA. - amiodarone gtt per cardiology. - increased Lopressor to 50 mg BID. - monitor on telemetry. - ASA 162 mg daily. D/c heparin gtt. - check a TSH. - formal echo read pending. - treat underlying pneumonia. CAP/ asthma The pt has dyspnea and symptoms of congestion. She has a history of asthma. She has leukocytosis. CT showed: No evidence of pulmonary embolism; Groundglass opacities in the upper lobes, right greater than left as well as infiltrate, mild consolidation in the posterior lung bases; Small bilateral pleural effusions; Mediastinal and hilar adenopathy. Respiratory status markedly improved 08/20. - continue ceftriaxone and azithromycin. - sputum culture and gram stain. - Duonebs as needed. - Solumedrol switched to prednisone 20 mg BID. - incentive spirometry, encourage ambulation. Hyponatremia Likely s/t decreased PO intake, which the pt endorses. Improved. - IVFs. - encourage PO intake. - monitor BMP. Thrombocytopenia/ Anemia Unsure of baseline. May be decreased secondary to infection. May be dilutional and exacerbated by fluids. - treat pneumonia as above. - Follow CBC. - check B12, folate, iron studies and Hemoccult. PPx: Heparin. Discharge Planning Awaiting clinical improvement. Clint Bassett DO Aug 20, 2016 11:12
[2016-08-20] MEDS ORDERED: CALCIUM GLUCONATE INJ 2 GM in SODIUM CHLORIDE 0.9% INJ 100 ML IV ONE (12:00)
[2016-08-20 12:01] LABS: FERRITIN 207 NG/ML (8-252); TRANSFERRIN IRON PROFILE 133 MG/DL (200-360)
[2016-08-20] MEDS ORDERED: AZITHROMYCIN INJ 500 MG in SODIUM CHLOR 0.9% 250 ML INJ 250 ML IV SCH (14:00)
[2016-08-20] MEDS ORDERED: cefTRIAXone INJ 1,000 MG in SODIUM CHLORIDE 0.9% INJ 100 ML IV SCH (14:00)
[2016-08-20] MEDS: HEPARIN SODIUM - SQ 10,000 UNITS/ML VIAL SQ SCH ×2 (15:18→21:04)
[2016-08-20] MEDS: predniSONE 20 MG TAB PO SCH (21:04)
[2016-08-21] VITALS (25 sets, daily range): BP systolic 121–150; BP diastolic 60–76; PULSE 50–91; RESP 16–18; TEMP 97.4–98.3; O2SAT 92–98
[2016-08-21] MEDS: HEPARIN SODIUM - SQ 10,000 UNITS/ML VIAL SQ SCH ×3 (04:44→20:25)
[2016-08-21] MEDS: DOCUSATE SODIUM 100 MG CAP PO SCH ×2 (04:47→17:01)
[2016-08-21 06:52] LABS: HEMATOCRIT 29.3 % (35.0-46.0); MEAN CELL VOLUME 90.7 FL (80.0-100.0); MEAN CORPUSCULAR HEMOGLOBIN 30.6 PG (27.0-34.0); MEAN CORPUSCULAR HGB CONC 33.8 % (32.0-36.0); PLATELET COUNT 135 TH/MM3 (150-450); RED BLOOD COUNT 3.23 MIL/MM3 (4.00-5.30); RED CELL DISTRIBUTION WIDTH 12.9 % (11.6-17.2); REVIEW FLAG FINAL; WHITE BLOOD COUNT 12.7 TH/MM3 (4.0-11.0)
[2016-08-21 07:21] LABS: BICARBONATE 25.3 MEQ/L (21.0-32.0); MAGNESIUM 2.6 MG/DL (1.5-2.5); POTASSIUM 4.4 MEQ/L (3.5-5.1)
--- NOTE | 2016-08-21 07:33 | PD.CARD.PN ---
Subjective Subjective Remarks The patient denies chest pain, shortness of breath, palpitations, GI symptoms or bleeding. Telemetry reveals sinus rhythm on intravenous amiodarone. Objective Medications Reviewed Vital Signs / I&O Vital Signs Date Time Temp Pulse Resp B/P Pulse Ox O2 Delivery O2 Flow Rate FiO2 08/21/16 06:00 58 08/21/16 05:00 58 08/21/16 04:00 98.0 64 16 133/63 96 08/21/16 04:00 57 08/21/16 03:00 58 08/21/16 02:00 62 08/21/16 01:00 62 08/21/16 00:00 98.3 61 16 121/60 98 08/21/16 00:00 65 08/20/16 23:00 60 08/20/16 22:00 60 08/20/16 21:00 70 08/20/16 20:00 98.8 75 16 121/60 98 08/20/16 20:00 72 08/20/16 19:00 60 08/20/16 18:00 65 08/20/16 17:00 62 08/20/16 16:00 64 08/20/16 15:48 98 21 08/20/16 15:00 98.3 60 17 122/60 96 08/20/16 15:00 63 08/20/16 14:00 60 08/20/16 13:00 57 08/20/16 12:00 55 08/20/16 11:00 64 08/20/16 11:00 98.7 55 17 118/59 95 08/20/16 10:00 74 08/20/16 09:00 66 08/20/16 08:00 82 08/20/16 07:32 97 Nasal Cannula 2.00 08/20/16 07:30 98.5 68 16 112/66 95 I/O 08/20/16 08/20/16 08/20/16 08/21/16 08/21/16 08/21/16 07:00 15:00 23:00 07:00 15:00 23:00 Intake Total 1530 ml 840 ml 240 ml Balance 1530 ml 840 ml 240 ml Intake Oral 240 ml 840 ml 240 ml IV Total 1290 ml # Voids 5 4 3 # Bowel Movements 3 Physical Exam GENERAL: Well-nourished, well-developed patient in no apparent distress. SKIN: Warm and dry. NECK: JVD normal - less than or equal to 5 cm H20. CARDIOVASCULAR: Regular rate and rhythm without gallops, or rubs. 2-3/6 harsh systolic ejection murmur at the left sternal border. RESPIRATORY: Normal breath sounds - equal bilaterally. No accessory muscle use. No rales or rubs. Mild end expiratory wheezes. PERIPHERY: No cyanosis, or edema. Laboratory Laboratory Tests Test 08/20/16 08/20/16 08/21/16 10:00 10:12 06:15 Troponin I 1.43 NG/ML Iron Level 23 MCG/DL Total Iron Binding Capacity 186 MCG/DL Percent Iron Saturation 12.4 % Ferritin 207 NG/ML Vitamin B12 Level GREATER THAN 2000 PG/ML Folate 18.3 NG/ML Thyroid Stimulating Hormone 1.050 uIU/ML 3rd Gen White Blood Count 12.7 TH/MM3 Red Blood Count 3.23 MIL/MM3 Hemoglobin 9.9 GM/DL Hematocrit 29.3 % Mean Corpuscular Volume 90.7 FL Mean Corpuscular Hemoglobin 30.6 PG Mean Corpuscular Hemoglobin 33.8 % Concent Red Cell Distribution Width 12.9 % Platelet Count 135 TH/MM3 Mean Platelet Volume 10.8 FL Sodium Level 136 MEQ/L Potassium Level 4.4 MEQ/L Chloride Level 101 MEQ/L Carbon Dioxide Level 25.3 MEQ/L Anion Gap 10 MEQ/L Blood Urea Nitrogen 13 MG/DL Creatinine 0.73 MG/DL Estimat Glomerular Filtration 79 ML/MIN Rate Random Glucose 120 MG/DL Calcium Level 8.0 MG/DL Magnesium Level 2.6 MG/DL Imaging Last 48 hours Impressions Chest X-Ray 08/19/16 1122 Signed Impressions: Service Date/Time: Friday, August 19, 2016 11:36 - CONCLUSION: Pulmonary venous congestion with some mild bibasilar infiltrates. Kaleb Herrera MD Assessment and Plan Assessment and Plan Problems: Upper respiratory tract infectionpossible pneumonia. Rapid atrial fibrillation in the setting of bronchodilators. Elevated troponinnonspecific with arrhythmia and hypertrophic cardiomyopathy. Severe obstructive hypertrophic cardiomyopathy. Severe mitral regurgitation. Anemia Recommendations: I will switch her to oral amiodarone. We would continue this at 200 mg twice a day along with her beta johanny. Beta-blockade can be cut back some of her heart rate falls below 50 bpm. No heavy exertion. The patient understands she needs to get back up to [place] as soon as possible for follow-up with cardiology as she likely needs definitive treatment of her cardiomyopathy and valvular disease. She does need to take full records with her to hand carry to her physicians [place]. She cannot drive on the motorcycle. If she is driven back to [place], she needs to stop and walk every hour to avoid DVT. Continue aspirinI am hesitant about full anticoagulation given her anemia. I will sign off and be available if needed. Landry Randle MD Aug 21, 2016 07:33
[2016-08-21] MEDS: SODIUM CHLOR 0.9% 1000 ML INJ 1,000 ML IV SCH (09:10)
[2016-08-21] MEDS: BUDESONIDE-FORMOTEROL 160/4.5 MCG INHALER INH SCH ×2 (09:11→20:22)
[2016-08-21] MEDS: OLOPATADINE HCL 0.1% OPHT SOLN 5 ML BTL EACH EYE SCH ×2 (09:11→20:22)
[2016-08-21] MEDS: SODIUM CHLORIDE 0.9% FLUSH 5 ML FLUSH FLUSH SCH ×2 (09:11→20:28)
[2016-08-21] MEDS: PANTOPRAZOLE SOD 20 MG DELAYED RELEASE TAB PO SCH (09:12)
[2016-08-21] MEDS: METOPROLOL TARTRATE 50 MG TAB PO SCH ×2 (09:12→20:23)
[2016-08-21] MEDS: ASPIRIN EC 81 MG TABEC PO SCH (09:12)
[2016-08-21] MEDS: predniSONE 20 MG TAB PO SCH ×2 (09:12→20:22)
[2016-08-21] MEDS: AMIODARONE 200 MG TAB PO SCH ×2 (09:13→20:22)
[2016-08-21] MEDS ORDERED: OXYGENTANK NAS.CANULA (13:26)
--- NOTE | 2016-08-21 13:28 | HHI.DCPOC ---
Discharge Care Plan Diagnosis: (1) Community acquired pneumonia (2) Asthma (3) New onset a-fib (4) Hyponatremia Goals to Promote Your Health * To prevent worsening of your condition and complications * To maintain your health at the optimal level Directions to Meet Your Goals Take your medications as prescribed Follow your dietary instruction Follow activity as directed Keep your appointments as scheduled Take your immunizations and boosters as scheduled If your symptoms worsen call your PCP, if no PCP go to Urgent Care Center or Emergency Room Smoking is Dangerous to Your Health. Avoid second hand smoke Call the 24-hour hour crisis hotline for domestic abuse at Clint Bassett DO Aug 21, 2016 13:28
--- NOTE | 2016-08-21 13:34 | HHI.PR ---
Subjective Remarks The patient says she would like to go home tomorrow. She says she does not have shortness of breath. She had questions about the medications she would be taking once she leaves the hospital. She wanted to know if she can get her medical records. Family at the bedside. Discussed with nursing. Objective Vitals Vital Signs Date Time Temp Pulse Resp B/P Pulse Ox O2 Delivery O2 Flow Rate FiO2 08/21/16 13:00 50 08/21/16 12:00 52 08/21/16 12:00 97.4 56 17 149/71 96 08/21/16 11:00 91 08/21/16 10:00 56 08/21/16 09:18 93 21 08/21/16 09:00 68 08/21/16 08:00 97.8 59 18 150/68 98 08/21/16 08:00 68 08/21/16 07:00 53 08/21/16 06:00 58 08/21/16 05:00 58 08/21/16 04:00 98.0 64 16 133/63 96 08/21/16 04:00 57 08/21/16 03:00 58 08/21/16 02:00 62 08/21/16 01:00 62 08/21/16 00:00 98.3 61 16 121/60 98 08/21/16 00:00 65 08/20/16 23:00 60 08/20/16 22:00 60 08/20/16 21:00 70 08/20/16 20:00 98.8 75 16 121/60 98 08/20/16 20:00 72 08/20/16 19:00 60 08/20/16 18:00 65 08/20/16 17:00 62 08/20/16 16:00 64 08/20/16 15:48 98 21 08/20/16 15:00 98.3 60 17 122/60 96 08/20/16 15:00 63 08/20/16 14:00 60 I/O 08/20/16 08/20/16 08/20/16 08/21/16 08/21/16 08/21/16 07:00 15:00 23:00 07:00 15:00 23:00 Intake Total 1530 ml 840 ml 240 ml Balance 1530 ml 840 ml 240 ml Intake Oral 240 ml 840 ml 240 ml IV Total 1290 ml # Voids 5 4 3 # Bowel Movements 3 Result Diagram: 08/21/16 0615 08/21/16 0615 Imaging Last Impressions Chest X-Ray 08/19/16 1122 Signed Impressions: Service Date/Time: Friday, August 19, 2016 11:36 - CONCLUSION: Pulmonary venous congestion with some mild bibasilar infiltrates. Kaleb Herrera MD CT Angiography 08/19/16 0000 Signed Impressions: Service Date/Time: Friday, August 19, 2016 16:05 - CONCLUSION: 1. No evidence of pulmonary embolism. 2. Groundglass opacities in the upper lobes right greater than left as well as infiltrate mild consolidation in the posterior lung bases. Findings may be infectious. 3. Small bilateral pleural effusions. 4. Mediastinal and hilar adenopathy. Clint Casey MD Objective Remarks GENERAL: This is a well-nourished, well-developed patient, in no apparent distress. SKIN: No rashes, ecchymoses or lesions. Cool and dry. HEAD: Atraumatic. Normocephalic. No temporal or scalp tenderness. EYES: Pupils equal round and reactive. Extraocular motions intact. No scleral icterus. No injection or drainage. ENT: Nose without bleeding, purulent drainage or septal hematoma. Throat without erythema, tonsillar hypertrophy or exudate. Uvula midline. Airway patent. NECK: Trachea midline. No JVD or lymphadenopathy. Supple, nontender, no meningeal signs. CARDIOVASCULAR: Regular rate and rhythm. Grade 3 systolic murmur appreciated. RESPIRATORY: Bilateral crackles. Minimal wheezing. GASTROINTESTINAL: Abdomen soft, non-tender, nondistended. No hepato-splenomegaly , or palpable masses. No guarding. MUSCULOSKELETAL: Trace bilateral lower extremity edema. NEUROLOGICAL: Awake and alert. Cranial nerves II through XII intact. Motor and sensory grossly within normal limits. Five out of 5 muscle strength in all muscle groups. Normal speech. PSYCH: Mood and affect appropriate. Procedures None. Medications and IVs Current Medications Medications (Trade) Dose Ordered Sig/Vinicio Route Start Time Stop Time Status Last Admin (Cardizem Inj/NS Inj) 125 ml @ 0 mls/hr TITRATE IV 08/19/16 14:00 08/19/16 15:03 (Patanol 0.1% Opth) 1 drop BID EACH EYE 08/19/16 21:00 08/21/16 09:11 (Protonix) 20 mg DAILY PO 08/20/16 09:00 08/21/16 09:12 (Symbicort 160-4.5 Inh) 1 puff BID INH 08/19/16 21:00 08/21/16 09:11 Metoprolol Tartrate 50 mg 50 mg Q12HR PO 08/19/16 21:00 08/21/16 09:12 Ceftriaxone Sodium 1000 mg/ Sodium Chloride 100 ml @ 200 mls/hr Q24H IV 08/20/16 14:00 08/20/16 15:17 (Zithromax Inj/ NS 250 ml Inj) 250 ml @ 250 mls/hr Q24H IV 08/20/16 14:00 08/20/16 15:17 (NS Flush) 2 ml UNSCH PRN FLUSH 08/19/16 17:30 (NS Flush) 2 ml BID FLUSH 08/19/16 21:00 08/21/16 09:11 (Tylenol) 650 mg Q4H PRN PO 08/19/16 17:30 (Colace) 100 mg Q12H PO 08/19/16 17:30 08/19/16 18:27 (Senokot) 17.2 mg Q12H PRN PO 08/19/16 17:30 (Ambien) 5 mg HS PRN PO 08/19/16 17:30 (Tylenol) 650 mg Q6H PRN PO 08/19/16 17:30 (Roxicodone) 10 mg Q4H PRN PO 08/19/16 17:30 (Roxicodone) 5 mg Q4H PRN PO 08/19/16 17:30 (Narcan Inj) 0.4 mg UNSCH PRN IV 08/19/16 17:30 (Ecotrin Ec) 162 mg DAILY PO 08/21/16 09:00 08/21/16 09:12 (Deltasone) 20 mg BID PO 08/20/16 21:00 08/21/16 09:12 (Heparin Inj) 5,000 units Q8HR SQ 08/20/16 14:00 08/21/16 04:44 (Cordarone) 200 mg Q12HR PO 08/21/16 09:00 08/21/16 09:13 A/P Assessment and Plan Atrial fibrillation/ Hypertrophic cardiomyopathy/ NSTEMI New onset. The pt had tachycardia and required adenosine prior to identification of rhythm being atrial fibrillation. She was started on a Cardizem drip. The pt's CHADs 2 score is 0. She is on Lopressor for a thickened heart for which she gets echocardiograms every 6 months. Cardiology consult appreciated. Echo revealed severe outflow obstruction with a peak gradient of 140 mm. Troponin elevated at 2.54, likely s/t A fib with HCM as well as PNA. TSH within normal limits. - amiodarone switched to by mouth per cardiology. -Continue Lopressor 25 mg BID. - monitor on telemetry. - ASA 162 mg daily. D/c heparin gtt. - treat underlying pneumonia. CAP/ asthma The pt has dyspnea and symptoms of congestion. She has a history of asthma. She has leukocytosis. CT showed: No evidence of pulmonary embolism; Groundglass opacities in the upper lobes, right greater than left as well as infiltrate, mild consolidation in the posterior lung bases; Small bilateral pleural effusions; Mediastinal and hilar adenopathy. Respiratory status markedly improved. The patient will need home oxygen per walk test. - continue ceftriaxone and azithromycin. - sputum culture and gram stain. - Duonebs as needed. - Solumedrol switched to prednisone 20 mg BID. - incentive spirometry, encourage ambulation. - Arrange for home oxygen. Case management assistance appreciated. - Chest x-ray in the morning. Hyponatremia Likely s/t decreased PO intake, which the pt endorses. - Resolved. Thrombocytopenia/ Anemia Unsure of baseline. May be decreased secondary to infection. May be dilutional and exacerbated by fluids. Labs consistent with anemia of chronic disease. Stable. - treat pneumonia as above. - Follow CBC as needed. - check Hemoccult. PPx: Heparin. Discharge Planning Anticipate discharge tomorrow with home oxygen. Clint Bassett DO Aug 21, 2016 13:34
[2016-08-21] MEDS: CEFUROXIME AXETIL 500 MG TAB PO SCH ×2 (14:18→20:22)
[2016-08-21] MEDS: AZITHROMYCIN 250 MG TAB PO SCH (14:19)
[2016-08-21] MEDS ORDERED: AMIO200T PO (16:45)
[2016-08-21] MEDS ORDERED: ASPI81TA11 PO (16:45)
[2016-08-21] MEDS ORDERED: CEFT500T3 PO (16:45)
[2016-08-21] MEDS ORDERED: ZITH250T PO (16:45)
[2016-08-21] MEDS ORDERED: PRED20 PO ×2 (16:45)
[2016-08-22] VITALS (14 sets, daily range): BP systolic 126–141; BP diastolic 68–80; PULSE 49–73; RESP 20; TEMP 98.1–98.5; O2SAT 94–98
[2016-08-22] MEDS: DOCUSATE SODIUM 100 MG CAP PO SCH (05:12)
[2016-08-22] MEDS: HEPARIN SODIUM - SQ 10,000 UNITS/ML VIAL SQ SCH (05:12)
--- NOTE | 2016-08-22 05:53 | RADRPT ---
EXAM DATE/TIME: 08/22/2016 05:15 [facility] COMPARISON: CHEST SINGLE AP, August 19, 2016, 11:36. INDICATIONS : Short of breath. MEDICAL HISTORY : Cardiovascular disease. SURGICAL HISTORY : None. ENCOUNTER: Subsequent ACUITY: 4 - 6 days PAIN SCORE: Non-responsive. LOCATION: Bilateral chest FINDINGS: Streaky air space disease at the left base. Hyperinflation. Cardiomegaly. Osseous structures are inta ct. CONCLUSION: No significant change has occurred. Hamzah Graves MD on August 22, 2016 at 5:51 Board Certified Radiologist. This report was verified electronically.
[2016-08-22] MEDS: CEFUROXIME AXETIL 500 MG TAB PO SCH (09:12)
[2016-08-22] MEDS: METOPROLOL TARTRATE 50 MG TAB PO SCH (09:12)
[2016-08-22] MEDS: AZITHROMYCIN 250 MG TAB PO SCH (09:12)
[2016-08-22] MEDS: ASPIRIN EC 81 MG TABEC PO SCH (09:12)
[2016-08-22] MEDS: PANTOPRAZOLE SOD 20 MG DELAYED RELEASE TAB PO SCH (09:13)
[2016-08-22] MEDS: predniSONE 20 MG TAB PO SCH (09:13)
[2016-08-22] MEDS: OLOPATADINE HCL 0.1% OPHT SOLN 5 ML BTL EACH EYE SCH (09:13)
[2016-08-22] MEDS: SODIUM CHLORIDE 0.9% FLUSH 5 ML FLUSH FLUSH SCH (09:13)
[2016-08-22] MEDS: AMIODARONE 200 MG TAB PO SCH (09:13)
[2016-08-22] MEDS: BUDESONIDE-FORMOTEROL 160/4.5 MCG INHALER INH SCH (09:14)
[2016-08-22] MEDS ORDERED: PILL SPLITTER OTHER PRN (12:15)
[2016-08-22] MEDS ORDERED: VENTAER INH (12:31)
--- NOTE | 2016-08-22 12:39 | HHI.DS ---
Discharge Summary Admission Date Aug 19, 2016 at 16:02 Discharge Date: Aug 22, 2016 Admitting Diagnosis New onset afib; Pneumonia (1) New onset a-fib ICD Code: I48.91 (2) Community acquired pneumonia ICD Code: J18.9 (3) Asthma ICD Code: J45.909 (4) Hyponatremia ICD Code: E87.1 (5) Hypertrophic obstructive cardiomyopathy ICD Code: I42.1 (6) LVH (left ventricular hypertrophy) ICD Code: I51.7 (7) Atrial fibrillation with RVR ICD Code: I48.91 (8) Non-ST elevation myocardial infarction (NSTEMI), type 2 ICD Code: I21.4 (9) Moderate to severe mitral regurgitation ICD Code: I34.0 Procedures None. Brief History - From Admission The patient is a 70-year-old female who is presenting to the hospital with shortness of breath. She is here visiting from [place], having ridden down on the back of her 's motorcycle. She said that she started to develop chest discomfort, shortness of breath and a cough on Sunday. She had been producing mucus that she describes as cowart in color. She complained of intermittent chest pain with her coughing episodes. She denied any palpitations. She had been having a lot of shortness of breath. She had not been eating well over the past few days. She denied any fevers. She did get a bloody nose the day previous that seemed to resolve on its own relatively quickly. She had been planning on going home tomorrow but she realized she would not be able to make the journey [place] so she decided to come to the hospital. In the emergency department she was found to have tachycardia up to 150-200 in the setting of receiving bronchodilators, she was given adenosine IV push and EKG revealed atrial fibrillation. CTA chest was negative for pulmonary embolism but did show groundglass opacities in the upper lobes right greater than left as well as infiltrated, mild consolidation in the posterior lung bases. She was started on cardizem drip. CBC/BMP: 08/21/16 0615 08/21/16 0615 Significant Findings Laboratory Tests Test 08/19/16 08/19/16 08/19/16 08/20/16 14:06 18:30 20:31 00:06 Prothrombin Time 11.8 SEC 12.0 SEC (9.8-11.6) (9.8-11.6) Activated Partial 36.6 SEC 42.6 SEC Thromboplast Time (24.3-30.1) (24.3-30.1) Troponin I 1.76 NG/ML 2.54 NG/ML (0.02-0.05) (0.02-0.05) White Blood Count 11.8 TH/MM3 (4.0-11.0) Red Blood Count 3.40 MIL/MM3 (4.00-5.30) Hemoglobin 10.4 GM/DL (11.6-15.3) Hematocrit 30.9 % (35.0-46.0) Platelet Count 110 TH/MM3 (150-450) Test 08/20/16 08/20/16 08/20/16 08/21/16 04:20 10:00 10:12 06:15 Red Blood Count 3.19 MIL/MM3 3.23 MIL/MM3 (4.00-5.30) (4.00-5.30) Hemoglobin 9.8 GM/DL 9.9 GM/DL (11.6-15.3) (11.6-15.3) Hematocrit 29.2 % 29.3 % (35.0-46.0) (35.0-46.0) Platelet Count 102 TH/MM3 135 TH/MM3 (150-450) (150-450) Neutrophils (%) (Auto) 90.7 % (16.0-70.0) Lymphocytes (%) (Auto) 5.2 % (9.0-44.0) Neutrophils # (Auto) 9.2 TH/MM3 (1.8-7.7) Lymphocytes # (Auto) 0.5 TH/MM3 (1.0-4.8) Activated Partial 64.1 SEC Thromboplast Time (24.3-30.1) Sodium Level 132 MEQ/L (136-145) Estimat Glomerular Filtration 80 ML/MIN (>89) 79 ML/MIN (>89) Rate Random Glucose 114 MG/DL 120 MG/DL (74-106) (74-106) Calcium Level 7.4 MG/DL 8.0 MG/DL (8.5-10.1) (8.5-10.1) Protein Corrected Calcium 7.6 MG/DL (8.5-10.1) B-Type Natriuretic Peptide 603 PG/ML (0-100) Troponin I 1.43 NG/ML (0.02-0.05) Iron Level 23 MCG/DL (50-170) Total Iron Binding Capacity 186 MCG/DL (250-450) Percent Iron Saturation 12.4 % (20-50) Vitamin B12 Level GREATER THAN 2000 PG/ML (193-986) Folate 18.3 NG/ML (3.1-17.5) White Blood Count 12.7 TH/MM3 (4.0-11.0) Magnesium Level 2.6 MG/DL (1.5-2.5) Imaging Last Impressions Chest X-Ray 08/22/16 0600 Signed Impressions: Service Date/Time: Monday, August 22, 2016 05:15 - CONCLUSION: No significant change has occurred. Hamzah Graves MD CT Angiography 08/19/16 0000 Signed Impressions: Service Date/Time: Friday, August 19, 2016 16:05 - CONCLUSION: 1. No evidence of pulmonary embolism. 2. Groundglass opacities in the upper lobes right greater than left as well as infiltrate mild consolidation in the posterior lung bases. Findings may be infectious. 3. Small bilateral pleural effusions. 4. Mediastinal and hilar adenopathy. Clint Casey MD PE at Discharge GENERAL: This is a well-nourished, well-developed patient, in no apparent distress. SKIN: No rashes, ecchymoses or lesions. Cool and dry. HEAD: Atraumatic. Normocephalic. No temporal or scalp tenderness. EYES: Pupils equal round and reactive. Extraocular motions intact. No scleral icterus. No injection or drainage. ENT: Nose without bleeding, purulent drainage or septal hematoma. Throat without erythema, tonsillar hypertrophy or exudate. Uvula midline. Airway patent. NECK: Trachea midline. No JVD or lymphadenopathy. Supple, nontender, no meningeal signs. CARDIOVASCULAR: Regular rate and rhythm. Grade 3 systolic murmur appreciated. RESPIRATORY: Bilateral crackles. Minimal wheezing. GASTROINTESTINAL: Abdomen soft, non-tender, nondistended. No hepato-splenomegaly , or palpable masses. No guarding. MUSCULOSKELETAL: Trace bilateral lower extremity edema. NEUROLOGICAL: Awake and alert. Cranial nerves II through XII intact. Motor and sensory grossly within normal limits. Five out of 5 muscle strength in all muscle groups. Normal speech. PSYCH: Mood and affect appropriate. Hospital Course The patient was admitted to the hospital. Cardiology was consulted. The patient was initially on ABO Tirone drip. This was transitioned to by mouth amiodarone. The patient did have elevation of troponin. Cardiology felt this was due to the elevated heart rate. Patient was treated with antibiotics for possible pneumonia. Patient has been weaned to room air and does not require home oxygen today with sats 100% on ambulating. 2-D echocardiogram was consistent with possible hypertrophic obstructive cardiomyopathy. The patient additionally has severe mitral regurgitation per the 2-D echo. Cardiology did recommend that she stay on amiodarone and follow up with her cabinet abrasive sandblaster that she is soon as she returns to [place]. The patient has a flight home tomorrow. The patient also has anemia. She admits she has never had a colonoscopy. Due to the anemia cardiology was reticent to start her on full anticoagulation. I've explained to the patient that she needs to have GI evaluation of her anemia prior to being started on anticoagulation. Also discussed with the patient to avoid strenuous activity until cleared by her cabinet abrasive sandblaster at home. I discussed I discussed the multiple cardiac issues in detail with the patient and her at bedside and spent greater than 30 minutes talking with them and answering their questions. Patient appears to have good understanding. They will provide a copy of the cardiology notes as well as 2-D echocardiogram as well as follow-up directions. The patient does have a cabinet abrasive sandblaster she is established with her hometown and agrees to follow- up within the next week. Pt Condition on Discharge: Stable Discharge Disposition: Discharge Home Discharge Time: > 30 minutes Discharge Instructions DIET: Follow Instructions for: Heart Healthy Diet Activities you can perform: Regular-No Restrictions Follow up Referrals: Cardiology - 1 Week PCP Follow-up - 1 Week New Medications: Albuterol 18 GM Inh (Ventolin Hfa 18 GM Inh) 90 Mcg/Act Aer 2 PUFF INH Q4-6H PRN SHORTNESS OF BREATH #1 Ref 0 INHALER Oxygen tank (Oxygen tank) 1 Ea Tank 2 LITER GUALBERTO.CANULA CONTINUOUS Oxygen Concentrator Portable Gaseous 2 L/min via Nasal Cannula Continuous For 99 months HYPOXEMIA PREVENTION #2 CYLINDER Prednisone (Prednisone) 20 Mg Tab 20 MG PO DAILY Start taking this daily dosing script once finished with twice daily dosing script. Breathing #5 Ref 0 TAB Amiodarone (Amiodarone) 200 Mg Tab 200 MG PO Q12HR A fib #[address] (Aspirin EC) 81 Mg Tabdr 162 MG PO DAILY A fib #30 TAB Azithromycin (Zithromax) 250 Mg Tab 500 MG PO DAILY Infection #2 TAB Cefuroxime (Ceftin) 500 Mg Tab 500 MG PO Q12HR Infection #10 TAB Continued Medications: Budesonide Nasal [place] (Rhinocort Allergy Nasal [place]) 32 Mcg/Act Susp 1 SPRAY EACH NARE DAILY Allergies #1 Ref 0 BOTTLE Calcium Citrate (Ken-Citrate) 150 Mg Cap 150 MG PO DAILY Calcium Supplement Ref 0 CAP Cevimeline (Cevimeline) 30 Mg Cap 30 MG PO TID Dry Mouth #90 Ref 0 CAP Fluticasone-Salmeterol Inh (Advair Diskus Inh) 250-50 Mcg/Blist Aer 1 PUFF INH BID Rinse mouth after use. #1 Ref 0 INHALER Metoprolol Tartrate (Metoprolol Tartrate) 25 Mg Tab 25 MG PO BID #60 Ref 0 TAB Olopatadine Opth Drops (Patanol Opth Drops) 0.1 % Drops 1 DROP EACH EYE BID Allergies #1 Ref 0 BOTTLE Rabeprazole (Aciphex) 20 Mg Tab 20 MG PO DAILY Reflux #30 Ref 0 TAB Solifenacin (Vesicare) 5 Mg Tab Unknown Dose PO DAILY Urinary Symptom Managemen #30 Ref 0 TAB Vitamin E (Topical) (Vitamin E) 100 Unit/Gm Cre 400 UNITS PO DAILY ([Femtrace]) 1.8 MG PO DAILY Oliva Blanton MD Aug 22, 2016 12:39
[2016-08-22] MEDS ORDERED: ALBUTEROL SULFATE 90 MCG/ACT HFA 8 GM INHALER INH ONE (14:00)
[2016-08-22] MEDS ORDERED: METOPROLOL TARTRATE 50 MG TAB PO SCH (21:00)
== END 2016-08-22 13:19 | disposition home or self-care (01) | DRG 308 ==
LOC: NEPE 11:03 → NEDA 16:02 → HCIN 19:00 → HCIS 08-21 16:59
PROVIDERS: ADMIT Family Medicine; ATTEND Family Medicine
DX: I48.91 Unspecified atrial fibrillation (principal); J18.9 Pneumonia, unspecified organism; J90 Pleural effusion, not elsewhere classified; D69.6 Thrombocytopenia, unspecified; I42.1 Obstructive hypertrophic cardiomyopathy; E87.1 Hypo-osmolality and hyponatremia; I42.2 Other hypertrophic cardiomyopathy; D63.8 Anemia in other chronic diseases classified elsewhere; E83.51 Hypocalcemia; I34.0 Nonrheumatic mitral (valve) insufficiency; J45.909 Unspecified asthma, uncomplicated; R59.0 Localized enlarged lymph nodes
CPT/HCPCS: 71010; 71275; 76937; 80048; 82550; 82552; 82607; 82728; 82746; 83540; 83550; 83735; 83880; 84155; 84443; 84484; 85025; 85027; 85610; 85730; 87804; 93005; 93306; 94150; 94620; 94640; 94664; 96365; 96366; 96375; 96376; J0153; J0282; J0456; J0610; J0696; J1160; J1644; J1650; J2920; J2930; J3475; J7030; J7050; J7060; J7512; Q9967